=== PATIENT | male | born 2000 | race Caucasian/White ===

== ENCOUNTER 2023-07-10 09:31 | Emergency (ER) | payer SELFPAY ==
[2023-07-10 11:00] LABS: SARS-CoV-2 NAA Rapid Test Not Detected (NotDetected)
== END 2023-07-10 11:25 | disposition home or self-care (01) ==
LOC: CSHERS 09:31
DX: J10.1 Influenza due to other identified influenza virus with other respiratory manifestations (principal); F17.290 Nicotine dependence, other tobacco product, uncomplicated
CPT/HCPCS: 0241U; 99283